=== PATIENT | male | born 1970 | race American Indian/Alaskan Native ===

== ENCOUNTER 2016-10-16 20:06 | Inpatient (IN) | payer OTHER ==
[2016-10-16] MEDS ORDERED: MORPHINE IV ONE (20:20)
[2016-10-16] MEDS ORDERED: MORPHINE ONE (20:24)
[2016-10-16] MEDS ORDERED: ZOFRAN ONE (20:24)
[2016-10-16] MEDS ORDERED: NACL 0.9% 1000 ML 1,000 ML ONE (20:26)
[2016-10-16] MEDS ORDERED: NACL 0.9% 1000 ML 1,000 ML IV ONE (20:27)
[2016-10-16] MEDS ORDERED: ZOFRAN IV ONE (20:27)
[2016-10-16] MEDS ORDERED: DILAUDID IV ONE ×3 (20:27→21:13)
[2016-10-16] MEDS ORDERED: ATIVAN IV ONE ×2 (20:40→21:27)
[2016-10-16 21:25] LABS: Basophils % (Auto) 0.9 % (0.0-1.8); Eosinophils % (Auto) 0.3 % (0.0-4.3); Hematocrit 42.7 % (35.5-45.6); Hemoglobin 14.5 gm/dl (11.8-15.2); Mean Corpuscular HGB Conc 34 % (32-34); Mean Corpuscular Hemoglobin 29 pg (28-32); Mean Corpuscular Volume 86 fl (84-94); Platelet Count 305 K/mm3 (140-440); Red Blood Count 4.97 M/mm3 (3.65-5.03); Red Cell Distribution Width 13.1 % (13.2-15.2)
[2016-10-16 21:31] LABS: Alanine Aminotransferase 15 units/L (7-56); Albumin 4.2 g/dL (3.9-5); Albumin/Globulin Ratio 1.2 %; Alkaline Phosphatase 90 units/L (35-129); Anion Gap 21 mmol/L; Blood Urea Nitrogen 13 mg/dL (9-20); Calcium 9.3 mg/dL (8.4-10.2); Carbon Dioxide 22 mmol/L (22-30); Chloride 99.2 mmol/L (98-107); Glucose 156 mg/dL (75-100); Lipase 20 units/L (13-60); Potassium 3.5 mmol/L (3.6-5.0); Sodium 139 mmol/L (137-145); Total Protein 7.6 g/dL (6.3-8.2)
--- NOTE | 2016-10-16 21:55 | Emergency Department Report ---
ED Abdominal Pain HPI - General Chief Complaint: Abdominal Pain Stated Complaint: ABD PAIN Time Seen by Provider: 10/16/16 20:26 Source: patient Mode of arrival: Wheelchair Limitations: Altered Mental Status - History of Present Illness Initial Comments: 46-year-old male with a history of reducible right inguinal hernia times one year presents to the hospital complaining of acute right inguinal pain. Patient describes it as "my hernia ruptured". He states pain is 10/10 in intensity, constant, worse with palpation. Patient's syncopal episode with diaphoresis and the waiting room secondary to pain. Patient states this is the largest his hernia has ever been and has never hurt this much. No reports of nausea or vomiting. No previous surgery support Severity scale (0 -10): 10 - Related Data Allergies Allergy/AdvReac Type Severity Reaction Status Date / Time No Known Allergies Allergy Unverified 10/16/16 20:35 ED Review of Systems ROS: Stated complaint: ABD PAIN Other details as noted in HPI Comment: All other systems reviewed and negative Other: Constitutional: No fevers chills or weight loss Eyes: No eye pain visual changes or discharge ENT: No ear pain or throat pain Neck: Denies pain Respiratory: Denies cough wheezing shortness of breath at rest shortness of breath or exertion, orthopnea or PND Cardiovascular: Denies chest pain, palpitations, syncope Endocrine: Denies excessive sweating, intolerance to cold, increased thirst GI: Denies abdominal pain, nausea, vomiting, diarrhea, constipation, melena hematochezia : Denies dysuria, urinary frequency, or urgency Musculoskeletal: Denies back pain, joint swelling Skin: Denies rash, lesions, erythema Neurologic: Denies headache, numbness, weakness Psychiatric: Denies suicidal ideation, hallucinations Hematological/lymphatic: Denies easy bruising, lymphadenopathy ED Past Medical Hx - Past Medical History Additional medical history: hernia - Social History Smoking Status: Unknown if ever smoked Substance Use Type: None ED Physical Exam - General Limitations: Altered Mental Status ED Course Vital Signs 10/16/16 10/16/16 10/16/16 20:16 20:34 20:42 Temperature 98.9 F 97.8 F Pulse Rate 88 74 Pulse Rate [ Intra-Procedure ] Pulse Rate [ Post-Procedure] Pulse Rate [Pre -Procedure] Respiratory 18 18 22 Rate Respiratory Rate [Intra- Procedure] Respiratory Rate [Post- Procedure] Respiratory Rate [Pre- Procedure] Blood Pressure 100/53 Blood Pressure [Intra- Procedure] Blood Pressure 129/72 [Left] Blood Pressure [Post-Procedure ] Blood Pressure [Pre-Procedure] O2 Sat by Pulse 99 98 Oximetry O2 Sat by Pulse Oximetry [ Intra-Procedure ] O2 Sat by Pulse Oximetry [Post -Procedure] O2 Sat by Pulse Oximetry [Pre- Procedure] 10/16/16 10/16/16 10/16/16 22:13 22:40 22:42 Temperature Pulse Rate 86 Pulse Rate [ 110 H Intra-Procedure ] Pulse Rate [ Post-Procedure] Pulse Rate [Pre 100 H 100 H -Procedure] Respiratory 16 Rate Respiratory 12 Rate [Intra- Procedure] Respiratory Rate [Post- Procedure] Respiratory 16 16 Rate [Pre- Procedure] Blood Pressure Blood Pressure 159/96 [Intra- Procedure] Blood Pressure 142/84 [Left] Blood Pressure [Post-Procedure ] Blood Pressure 137/89 137/89 [Pre-Procedure] O2 Sat by Pulse 100 Oximetry O2 Sat by Pulse 100 Oximetry [ Intra-Procedure ] O2 Sat by Pulse Oximetry [Post -Procedure] O2 Sat by Pulse 100 100 Oximetry [Pre- Procedure] 10/16/16 10/16/16 22:55 22:56 Temperature Pulse Rate Pulse Rate [ 110 H 110 H Intra-Procedure ] Pulse Rate [ 87 87 Post-Procedure] Pulse Rate [Pre 100 H 100 H -Procedure] Respiratory Rate Respiratory 12 12 Rate [Intra- Procedure] Respiratory 12 12 Rate [Post- Procedure] Respiratory 16 16 Rate [Pre- Procedure] Blood Pressure Blood Pressure 159/96 159/96 [Intra- Procedure] Blood Pressure [Left] Blood Pressure 146/81 146/81 [Post-Procedure ] Blood Pressure 137/89 137/89 [Pre-Procedure] O2 Sat by Pulse Oximetry O2 Sat by Pulse 100 100 Oximetry [ Intra-Procedure ] O2 Sat by Pulse 100 100 Oximetry [Post -Procedure] O2 Sat by Pulse 100 100 Oximetry [Pre- Procedure] - Reevaluation(s) Reevaluation #1: 10/16/16 21:52 After receiving Ativan 2 mg, Dilaudid 1.5 mg I attempted to reduce right inguinal hernia. Patient still did not tolerate procedure although drowsy prior to attempts. We'll obtain CT scan at this time and consult surgery Reevaluation #2: 10/16/16 22:56 Abs attempted to constant today patient with ketamine. Patient was sedated however, I was still unable to reduce his right inguinal hernia. Dr. lopez is full comp to take patient to surgery and he does not recommend CT at this time. - Consultations Consultation #1: 10/16/16 22:[address] Avery surgeon technology adoption manager. Request to reattempt constant sedation and reduction with conscious sedation prior to CT and surgery consultation 10/16/16 22:56 Dr. Avery will come in to perform surgery for incarcerated hernia - Moderate Sedation Indications: other (reduction of hernia) ASA Class: I Mallampati Airway Score: 1 Time of Last PO Intake: 10:00 (breakfast) Preparation: secured entrance monitor applied, pulse oximeter, capnometry used, supplemental O2 applied Ketamine: IV Ketamine Dose: 50 Complications: none Interventions: oxygen applied Patient Tolerated Procedure: well Additional Comments: I was unable to reduce hernia. Icepack was placed to right inguinal area prior to reduction attempt. Firm steady pressure was held and to try to reduce hernia through defect however this was unsuccessful. start time 22:40 finish time 22:56 ED Medical Decision Making - Lab Data Result diagrams: 10/16/16 20:19 10/16/16 20:19 Lab Results 10/16/16 10/16/16 Range/Units 20:19 20:19 WBC 7.0 (4.5-11.0) K/mm3 RBC 4.97 (3.65-5.03) M/mm3 Hgb 14.5 (11.8-15.2) gm/dl Hct 42.7 (35.5-45.6) % MCV 86 (84-94) fl MCH 29 (28-32) pg MCHC 34 (32-34) % RDW 13.1 L (13.2-15.2) % Plt Count 305 (140-440) K/mm3 Lymph % (Auto) 26.9 (13.4-35.0) % Montgomery % (Auto) 5.1 (0.0-7.3) % Eos % (Auto) 0.3 (0.0-4.3) % Baso % (Auto) 0.9 (0.0-1.8) % Lymph # 1.9 (1.2-5.4) K/mm3 Montgomery # 0.4 (0.0-0.8) K/mm3 Eos # 0.0 (0.0-0.4) K/mm3 Baso # 0.1 (0.0-0.1) K/mm3 Seg Neutrophils % 66.8 (40.0-70.0) % Seg Neutrophils # 4.7 (1.8-7.7) K/mm3 Sodium 139 (137-145) mmol/L Potassium 3.5 L (3.6-5.0) mmol/L Chloride 99.2 (98-107) mmol/L Carbon Dioxide 22 (22-30) mmol/L Anion Gap 21 mmol/L BUN 13 (9-20) mg/dL Creatinine 1.3 (0.8-1.5) mg/dL Estimated GFR > 60 ml/min BUN/Creatinine Ratio 10.00 % Glucose 156 H (75-100) mg/dL Calcium 9.3 (8.4-10.2) mg/dL Total Bilirubin 0.50 (0.1-1.2) mg/dL AST 18 (5-40) units/L ALT 15 (7-56) units/L Alkaline Phosphatase 90 (35-129) units/L Total Protein 7.6 (6.3-8.2) g/dL Albumin 4.2 (3.9-5) g/dL Albumin/Globulin Ratio 1.2 % Lipase 20 (13-60) units/L - Medical Decision Making Hernia is not reducible in the ED despite conscious sedation. Dr. Avery will take patient to surgery. - Differential Diagnosis incarcerated hernia, strangulated hernia Critical Care Time: No Critical care attestation.: If time is entered above; I have spent that time in minutes in the direct care of this critically ill patient, excluding procedure time. ED Disposition Clinical Impression: Incarcerated right inguinal hernia Disposition: OP ADMIT IP TO THIS HOSP Is pt being admited?: Yes Condition: Stable Time of Disposition: 23:24 (Dr Avery/surgeon)
[2016-10-16] MEDS ORDERED: NACL ONE (21:57)
[2016-10-16] MEDS ORDERED: KETALAR IV ONE ×3 (22:04→23:45)
[2016-10-16] MEDS ORDERED: DILAUDID ONE (23:53)
[2016-10-16] MEDS ORDERED: DIPRIVAN 10 MG/ML IV ONE (23:54)
[2016-10-16] MEDS ORDERED: XYLOCAINE MPF 2% ONE (23:54)
[2016-10-16] MEDS ORDERED: QUELICIN ONE (23:56)
[2016-10-16] MEDS ORDERED: ZEMURON IV ONE (23:56)
[2016-10-17] MEDS ORDERED: MARCAINE-EPI/PF 0.5%-1:200,000 INFILTRATI ONE ×2 (00:08→01:55)
--- NOTE | 2016-10-17 00:30 | Anesthesia Consultation ---
Anesthesia Consult and Med Hx Date of service: 10/17/16 - Airway Anesthetic Teeth Evaluation: Good ROM Head & Neck: Adequate Mental/Hyoid Distance: Adequate Mallampati Class: Class II Intubation Access Assessment: Probably Good - Pulmonary Exam CTA: Yes - Cardiac Exam Cardiac Exam: RRR - Pre-Operative Health Status ASA Pre-Surgery Classification: ASA2, Emergency Proposed Anesthetic Plan: General - Pulmonary Hx Smoking: Yes (1PPD) Hx Asthma: No - Cardiovascular System Hx Hypertension: Yes (USES APPLE CIDER VINEGAR FOR TREATMENT) - Additional Comments Anesthesia Medical History Comments: CONSENT OBTAINED FROM BROTHER NICKIE IBANEZ. DUE TO PATIENT RECEIVING SEDATION RECENTLY AND EMERGENCY SURGERY.
--- NOTE | 2016-10-17 00:30 | Anesthesia Day of Surgery ---
Anesthesia Day of Surgery - Day of Surgery Patient Examined: Yes Patient H&P Reviewed: Yes Patient is NPO: Yes
[2016-10-17] MEDS ORDERED: DILAUDID IV PRN (00:31)
[2016-10-17] MEDS ORDERED: ZOFRAN IV PRN ×2 (00:31→03:59)
[2016-10-17] MEDS ORDERED: ANCEF/STERILE WATER 2 GM/20 ML 2 GM/20 ML SYRINGE IV ONE (00:32)
--- NOTE | 2016-10-17 00:38 | History and Physical Report ---
Medications and Allergies Allergies Allergy/AdvReac Type Severity Reaction Status Date / Time No Known Allergies Allergy Unverified 10/16/16 20:35 Active Meds: Active Medications Hydromorphone HCl (Dilaudid) 0.5 mg IV Q10MIN PRN PRN Reason: Pain , Severe (7-10) Stop: 10/20/16 00:32 Ondansetron HCl (Zofran) 4 mg IV ONCE PRN PRN Reason: Nausea And Vomiting Stop: 10/17/16 00:32 Exam Vital Signs Temp Pulse Resp BP Pulse Ox 98.9 F 88 18 100/53 99 10/16/16 20:16 10/16/16 20:16 10/16/16 20:16 10/16/16 20:16 10/16/16 20:16 Results - Labs 10/16/16 20:19 10/16/16 20:19 Abnormal lab results 10/16/16 10/16/16 Range/Units 20:19 20:19 RDW 13.1 L (13.2-15.2) % Potassium 3.5 L (3.6-5.0) mmol/L Glucose 156 H (75-100) mg/dL Diabetes panel 10/16/16 Range/Units 20:19 Sodium 139 (137-145) mmol/L Potassium 3.5 L (3.6-5.0) mmol/L Chloride 99.2 (98-107) mmol/L Carbon Dioxide 22 (22-30) mmol/L BUN 13 (9-20) mg/dL Creatinine 1.3 (0.8-1.5) mg/dL Glucose 156 H (75-100) mg/dL Calcium 9.3 (8.4-10.2) mg/dL AST 18 (5-40) units/L ALT 15 (7-56) units/L Alkaline Phosphatase 90 (35-129) units/L Total Protein 7.6 (6.3-8.2) g/dL Albumin 4.2 (3.9-5) g/dL Calcium panel 10/16/16 Range/Units 20:19 Calcium 9.3 (8.4-10.2) mg/dL Albumin 4.2 (3.9-5) g/dL Pituitary panel 10/16/16 Range/Units 20:19 Sodium 139 (137-145) mmol/L Potassium 3.5 L (3.6-5.0) mmol/L Chloride 99.2 (98-107) mmol/L Carbon Dioxide 22 (22-30) mmol/L BUN 13 (9-20) mg/dL Creatinine 1.3 (0.8-1.5) mg/dL Glucose 156 H (75-100) mg/dL Calcium 9.3 (8.4-10.2) mg/dL Adrenal panel 10/16/16 Range/Units 20:19 Sodium 139 (137-145) mmol/L Potassium 3.5 L (3.6-5.0) mmol/L Chloride 99.2 (98-107) mmol/L Carbon Dioxide 22 (22-30) mmol/L BUN 13 (9-20) mg/dL Creatinine 1.3 (0.8-1.5) mg/dL Glucose 156 H (75-100) mg/dL Calcium 9.3 (8.4-10.2) mg/dL Total Bilirubin 0.50 (0.1-1.2) mg/dL AST 18 (5-40) units/L ALT 15 (7-56) units/L Alkaline Phosphatase 90 (35-129) units/L Total Protein 7.6 (6.3-8.2) g/dL Albumin 4.2 (3.9-5) g/dL Assessment and Plan 46 y/o male incarcerated RIH (large scrotal hernia, tender) Not able to be reduced in ER despite sedation. PMH - HTN PSH neg NKA Meds - htn meds FH - prostate CA SH - occ smoke & drink PE incarcerated large, R scrotal hernia For emergency expl lap, possible bowel resection. RIH repair with mesh. risks indications, and compl reviewed with pt and brother. will proceed
[2016-10-17] MEDS ORDERED: NACL 0.9% 1000 ML 1,000 ML ONE ×2 (00:53→01:51)
[2016-10-17] MEDS ORDERED: ATIVAN ONE (01:13)
[2016-10-17] MEDS ORDERED: NACL 0.9% IR ONE (01:33)
[2016-10-17] MEDS ORDERED: ZOFRAN ONE (02:00)
[2016-10-17] MEDS ORDERED: NEOSTIGMINE ONE (02:00)
[2016-10-17] MEDS ORDERED: ROBINUL ONE (02:00)
--- NOTE | 2016-10-17 02:13 | Post Operative Note ---
Pre-op diagnosis: incarcerated R scrotal hernia Post-op diagnosis: same Findings: as above. Hernia was able to fortunately be completely reduced under general anesthesia. then proceeded with Open RIH repair with mesh. bowel was also inspected and noted to be pink and viable. Large indirect sac. portion sent for specimen. Anesthesia: GETA Surgeon: JOSÉ LUIS SOLIS Estimated blood loss: none Pathology: list Specimen disposition: to lab Condition: stable Disposition: floor
[2016-10-17] MEDS ORDERED: PROVENTIL IH ONE ×2 (02:22→02:46)
[2016-10-17] MEDS ORDERED: DEMEROL ONE (02:31)
[2016-10-17] MEDS ORDERED: DILAUDID ONE (02:40)
[2016-10-17] MEDS ORDERED: DEMEROL IV PRN (02:47)
--- NOTE | 2016-10-17 04:22 | Post Anesthesia Evaluation ---
- Post Anesthesia Evaluation Patient Participated: Yes Airway Patent: Yes Stable Respiratory Function: Yes Nausea/Vomiting: No Temp > 96.8F: Yes Pain Manageable: Yes Adequeate Hydration: Yes Anesthesia Complications: No Block Receding Appropriately: Not Applicable Patient on Ventilator: No
[2016-10-17] MEDS: MORPHINE IV PRN ×5 (09:13→21:20)
[2016-10-17] MEDS ORDERED: VASELINE LIP THERAPY TP ONE (15:32)
[2016-10-17] MEDS: D5W/0.45% NACL/KCL 30 MEQ 30 MEQ/1,000 ML BAG IV SCH (22:47)
[2016-10-18] MEDS: MORPHINE IV PRN ×5 (00:19→16:35)
--- NOTE | 2016-10-18 00:45 | Admit Criteria Form ---
Admission Criteria Documentation: ABDOMINAL PAIN Clinical Indications for Admission to Inpatient Care (Place 'X' for any and all applicable criteria): Admission is indicated for ANY ONE of the following(1)(2)(3)(4)(5): [ X]I. Inpatient admission required rather than observation care (Also use Abdominal Pain: Observation Care, as appropriate) because of ANY ONE of the following: [ X]a) Severe pain requiring acute inpatient management [ ]b) Identification of etiology/finding that requires inpatient care (eg, aortic dissection, free air) [ ]c) Absent bowel sounds with complete ileus(6) [ ]d) Suspected toxic megacolon [ ]e) Severe electrolyte abnormalities requiring inpatient care [ ]f) High fever or infection requiring inpatient admission as indicated by ANY ONE of following(7)(8): [ ] i) Appropriate outpatient or observational care antimicrobial treatment unavailable, not effective, or not feasible [ ] ii) Documented bacteremia [ ] iii) Temperature > 104.9 degrees F (oral) [ ] iv) T >103.1 F (oral) or < 96.8 F(rectal) that does not respond to all emergency treatment measures [ ]g) Signs of intestinal obstruction [B] [ ]h) Hemodynamic instability [ ]i) IV fluid to replace significant ongoing losses (greater than 3 L/m2 per day) (12)(13) [ ]j) Percutaneous or open drainage (eg, abscess, biliary tract ) procedures [ ]k) Parenteral nutrition regimen that must be implemented on inpatient basis [ ]l) Other condition,treatment or monitoring requiring inpatient admission. [ ]II. Peritoneal signs present [ ]III. Surgery needed that cannot be performed on an ambulatory basis. [ ]IV. Evaluation requires patient to not eat or drink for extended period ( eg, more than 24 hours). [ ]V. Contraindications and/or Inappropriate clinical situations for Observational Care in patients with abdominal pain, when ANY ONE of the following is required: [ ]a) Thorough evaluation is required to prevent catastrophic events due to delays in diagnosing (e.g.Mesenteric ischemia) 1,3 [ ]b) Patient with severe pathology or with chronic symptoms unlikely to improve in the ED stay (3) [ ]. General contraindications and/or Inappropriate clinical situations for Observational Care in patients with abdominal pain, when ANY ONE of the following is required: [ ]a) Prediction of prolongation of LOS based on ANY ONE of the following may be considered as a contraindication for observational care 2, 3, 4, 5, 6, 7, 8, 9, 10, 11 [ ]i) Age > 65 yrs. [ ]ii) Patient arriving by ambulance [ ]iii) Patient with high acuity [ ]iv) Patient requiring vital sign monitoring [ ]v) Patient on IV medication [ ]b) Systolic blood pressures 180mmHg 3,12 [ ]c) Patient with altered mental status including delirium and other alteration of consciousness, (3) [ ]d) Patient whose discharge disposition will be to a detention home or rehabilitation home should not be managed in Emergency Department Observation Unit. CMS rule requires 3 days hospital stay before such placement.3,13 [ ]e) Patient with failure to thrive due to broad array of etiologies 3,16,17 [ ]f) Inability to ambulate 3,14 Extended stay beyond goal length of stay may be needed for(2)(3): [ ]a) Persistent abdominal pain with suspected intra-abdominal process [ ]b) Diagnosed condition requiring continued stay (e.g., pancreatitis, complicated diverticulitis) [ ]c) Surgery (e.g., colectomy) The original [facility] content created by [employer] has been revised. The portions of the content which have been revised are identified through the use of italic text or in bold, and [facility] has neither reviewed nor approved the modified material.All other unmodified content is copyright [facility]. Please see references footnoted in the original [facility] edition 2016 Admission Criteria Met: Yes
[2016-10-18] MEDS: D5W/0.45% NACL/KCL 30 MEQ 30 MEQ/1,000 ML BAG IV SCH ×3 (06:24→22:38)
[2016-10-18] MEDS: PERCOCET 5/325 PO PRN ×2 (13:48→19:26)
--- NOTE | 2016-10-18 14:34 | Progress Note ---
Assessment and Plan POD #1 Pt feeling well. hypoactive BS. neg flatus Abd soft. op site clean & dry. scrotum minimal swelling or tenderness stable attempt cl liq diet Objective Vital Signs - 12hr 10/18/16 10/18/16 10/18/16 03:18 03:48 04:04 Temperature 99.1 F Pulse Rate [ 0 L Apical] Pulse Rate [ 72 Left] Respiratory 20 20 20 Rate Blood Pressure 148/85 [Left Arm] O2 Sat by Pulse 97 Oximetry 10/18/16 10/18/16 10/18/16 06:24 07:45 10:00 Temperature 99.4 F Pulse Rate [ 68 Apical] Pulse Rate [ 68 Left] Respiratory 20 20 Rate Blood Pressure 147/86 [Left Arm] O2 Sat by Pulse 98 99 Oximetry - Labs 10/16/16 20:19 10/16/16 20:19
[2016-10-19] MEDS: MORPHINE IV PRN ×2 (00:01→23:09)
[2016-10-19] MEDS: PERCOCET 5/325 PO PRN ×4 (03:56→19:25)
[2016-10-19] MEDS: D5W/0.45% NACL/KCL 30 MEQ 30 MEQ/1,000 ML BAG IV SCH ×2 (06:50→16:59)
--- NOTE | 2016-10-19 13:42 | Progress Note ---
Assessment and Plan POD #2 Pt 1+ distended neg flatus Op site clean & dry. abd 1+ distention hypoactive BS ileus NPO ambulation dulculax supp Objective Vital Signs - 12hr 10/19/16 10/19/16 04:47 07:55 Temperature 99.0 F 98.6 F Pulse Rate [ 70 86 Apical] Pulse Rate [ 70 86 Left] Respiratory 20 18 Rate Blood Pressure 146/80 140/72 [Left Arm] O2 Sat by Pulse 148 H 98 Oximetry - Labs 10/16/16 20:19 10/16/16 20:19
[2016-10-19] MEDS ORDERED: DULCOLAX PR ONE (13:43)
[2016-10-20] MEDS: PERCOCET 5/325 PO PRN ×2 (03:40→08:29)
--- NOTE | 2016-10-20 07:43 | Progress Note ---
Assessment and Plan POD #3 Pt feeling well this am Abd soft. + BS Abd series yest confirms ileus pattern pt does not recall passing gas but must have had good results from Dulculax supp as abd flat today re-attempt cl liq diet no carbonated ambulation Objective Vital Signs - 12hr 10/19/16 10/19/16 10/19/16 20:25 20:30 22:00 Temperature 98.5 F Pulse Rate [ 68 Apical] Pulse Rate [ 68 70 Left] Respiratory 16 18 Rate Blood Pressure 126/78 [Left Arm] O2 Sat by Pulse 99 Oximetry 10/19/16 23:09 Temperature Pulse Rate [ Apical] Pulse Rate [ Left] Respiratory 16 Rate Blood Pressure [Left Arm] O2 Sat by Pulse Oximetry - Labs 10/16/16 20:19 10/16/16 20:19
--- NOTE | 2016-10-20 08:26 | XRay Report ---
ABDOMINAL SERIES THREE VIEWS: 10/17/16 02:05:00 CLINICAL: Ileus. Postop. FINDINGS: Supine upright views demonstrate moderate distention of the mid small bowel with air-fluid levels and moderate distention of the splenic flexure of the colon. No pneumoperitoneum. A calculus in the right mid abdomen is possibly in the right kidney. Surgical skin willem in the right lower quadrant. IMPRESSION: Mild ileus.
--- NOTE | 2016-10-20 13:43 | Progress Note ---
Assessment and Plan Pt feeling well without compl. jenise cl liq. + BM Abd soft. op site clean & dry advance to solid diet for dinner august d/c today if diet jenise rto this Wed Objective Vital Signs - 12hr 10/20/16 08:00 Temperature 98.5 F Pulse Rate [ 69 Apical] Pulse Rate [ 69 Left] Respiratory 18 Rate Blood Pressure 132/85 [Left Arm] O2 Sat by Pulse 98 Oximetry - Labs 10/16/16 20:19 10/16/16 20:19
--- NOTE | 2016-10-20 13:47 | Discharge Summary ---
Providers - Providers Date of Admission: 10/17/16 02:05 Attending physician: JOSÉ LUIS SOLIS Primary care physician: [employer] Hospitalization Condition: Good Disposition: DC-01 TO HOME OR SELFCARE Core Measure Documentation - Palliative Care Palliative Care/ Comfort Measures: Not Applicable - Core Measures Any of the following diagnoses?: none Exam - Constitutional Vitals: Temp Pulse Resp BP Pulse Ox 98.5 F 69 18 132/85 98 10/20/16 08:00 10/20/16 08:00 10/20/16 08:00 10/20/16 08:00 10/20/16 08:00 Plan Activity: other (reg diet this pm. august d/c this pm if diet jenise rto this Wed. no lifting over 5 lbs x 3 wks. keep dressings dry x 3 days) Weight Bearing Status: Partial Weight Bearing Diet: regular Wound: keep clean and dry Additional Instructions: surfak stool softner 1 po q am x 3 Follow up with: JOSÉ LUIS SOLIS MD [Staff Physician] - 10/23/16
[2016-10-20 16:39] VITALS: BP 130/84
== END 2016-10-20 18:00 | disposition home or self-care (01) | DRG 352 ==
LOC: ED 20:06 → 2B-SURG 10-17 02:05
PROVIDERS: ADMIT Surgery; ATTEND Surgery
PROC: 0YU50JZ Supplement Right Inguinal Region with Synthetic Substitute, Open Approach (ICD-10-PCS; principal; 2016-10-17)
DX: K40.30 Unilateral inguinal hernia, with obstruction, without gangrene, not specified as recurrent (principal); F17.210 Nicotine dependence, cigarettes, uncomplicated; I10 Essential (primary) hypertension; Z80.42 Family history of malignant neoplasm of prostate
CPT/HCPCS: 36415; 74022; 80053; 82962; 83690; 85025; 86850; 86900; 86901; 88302; 94770; 96361; 96374; 96375; 96376; C1781; J0330; J0690; J1170; J2060; J2175; J2270; J2405; J2704; J2710; J7030